=== PATIENT | male | born 1945 | race Caucasian/White ===

== ENCOUNTER → 2023-09-18 19:05 | Outpatient (REF) | payer MEDICARE, BC, SELFPAY | LOC: CLAB 19:05 | PROVIDERS: ATTENDING PHYSICIAN Specialist | DX: R35.0 Frequency of micturition (principal) | CPT/HCPCS: 87086 ==

== ENCOUNTER → 2023-11-02 08:50 | Day surgery (SDC) | payer MEDICARE, BC, SELFPAY ==
[2023-11-02 10:17] LABS: APTT 33.3 Sec (23.4-35.0); PT 14.3 Sec (11.4-14.6)
[2023-11-02 10:22] LABS: Hematocrit 38.1 % (39.0-52.0); Hemoglobin 12.8 g/dL (13.0-18.0); Mean Corp Hgb Conc. 33.6 g/dL (33.0-37.0); Mean Corpuscular Hgb 28.9 pg (27.0-31.0); Mean Platelet Volume 12.3 fL (7.4-10.4); Platelet Count 98 10^3/uL (130-400); Red Blood Cell Count 4.43 10^6/uL (4.70-6.10); Red Cell Dist. Width 14.6 % (11.5-14.5); White Blood Cell Count 3.4 10^3/uL (4.8-10.8)
[2023-11-02 11:26] LABS: Blood Urea Nitrogen 17 mg/dl (9-20); Calcium 9.6 mg/dl (8.4-10.2); Carbon Dioxide 28 mmol/L (22-30); Chloride 103 mmol/L (98-107); Glucose 101 mg/dl (70-99); Potassium 4.2 mmol/L (3.5-5.1); Sodium 141 mmol/L (135-145); eGFR > 60.00
== END ==
LOC: SDSPAT 08:50
PROVIDERS: ATTENDING PHYSICIAN Surgery; FAMILY PHYSICIAN Internal Medicine; OTHER PHYSICIAN Internal Medicine Cardiovascular Disease; REFERRING PHYSICIAN Specialist
DX: Z01.812 Encounter for preprocedural laboratory examination (principal)
CPT/HCPCS: 85027; 36415; 80048; 85610; 85730

== ENCOUNTER 2023-11-15 06:09 | Day surgery (SDC) | payer MEDICARE, BC, SELFPAY ==
[2023-11-02 09:08] VITALS: BMI 23.9
[2023-11-15] VITALS (16 sets, daily range): BP systolic 128–181; BP diastolic 66–93; BMI 23.9
[2023-11-15] MEDS: NORMOSOL-R 1000 IV ×2 (06:37→10:31)
[2023-11-15] MEDS: TYLENOL 1000 MG PO (06:37)
[2023-11-15] MEDS: CYSVIEW KIT 100 MG INTRAVES (06:50)
--- NOTE | 2023-11-15 10:01 | W.SUR.PREOP ---
Pre-Operative Surgical Note
-
I have examined this patient prior to the performance of the scheduled procedure.
The patient's condition is unchanged from the time of the current History and
Physical and the patient is able to undergo the scheduled procedure.
--- NOTE | 2023-11-15 10:01 | W.IMMPOSTOP ---
Surgical Immed Post Op Note
-
Primary Surgeon: Dudley Acosta MD
Assisting Surgeon: None
Core Cleaner: MIKKI Quinn
Pre-op Diagnosis: Right inguinal hernia
Post-op Diagnosis: Same
Procedure Performed:
Open right inguinal hernia repair with mesh
Anesthesia Type: General
Specimen / Cultures:
1. Right cord lipoma
2. Right inguinal nerve
Estimated Blood Loss: 3 cc
Complications: [None]
Operative Findings: Small indirect inguinal hernia with a small cord lipoma. No direct or femoral components. Floor reinforced with a 3 x 6 inch Bard soft mesh cut to size.
POST OP PLAN:
Patient being admitted for postop care after TURP.
General surgery will follow peripherally, discharge instructions placed.
--- NOTE | 2023-11-15 11:18 | OR.RPT ---
Operative Report
Operative Report
Patient Name: Trevor Saini
: 1945
Date of Operation: [] 11/15/2023
Preoperative Diagnosis: Reducible Inguinal hernia, right
Postoperative Diagnosis: Same
Procedure(s):
Open right inguinal Hernia Repair with mesh
Surgeon(s):
Dr. Acosta
Farm Machinery Engine Mechanic(s):
MIKKI Quinn
Anesthesia: General
Estimated Blood Loss: [3] cc
Urine Output: None
Drains/Lines/Implants: 3 x 6 inch Bard soft mesh cut to size
Specimens:
1. Right inguinal nerve (ilioinguinal)
2. Right cord lipoma
Indication for surgery: The patient has a history of groin pain and some asymmetry noted on exam and was found to have a [Left] Inguinal Hernia. Following review of therapeutic options they has elected to undergo an open repair
Findings at the time of surgery:
Patient had [an Indirect] Inguinal Hernia. The inguinal floor was reinforced with polypropylene mesh
Details of the operation:
I entered the operating room as Dr. Vuong was finishing up his part of the procedure. The drapes were removed and the patient was moved from the dorsal lithotomy to the supine position. The patient was clipped, prepped and draped in the usual
fashion. A team timeout was performed confirming administration of DVT prophylaxis, IV antibiotics and SCDs. The ASIS and pubic tubercle were marked and an incision was chosen along the course of a skin line. The skin was anesthestized with
Lidocaine. An incision was made through the skin line and dissection carried down through subcutaneous tissue and Rach's fascia. The superficial epigastric vein was identified and ligated. A Small Epi wound retractor was used to provide
exposure. The external oblique fibers were then divided in the direction of travel. The ilioinguinal nerve was identified and ligated. Dissection was carried down to the floor, which revealed the following:
At the site of the indirect (internal) ring, there was a moderate size protrusion of preperitoneal fat, the hernia sac was identified, dissected and reduced off the cord structures.
A cord lipoma was also identified and resected.
The direct space, floor of the canal revealed no weakness.
The floor of the canal was then reconstructed by placing a 6x3 in BARD soft polypropylene mesh trimmed to size and secured it in place with interrupted 0-PDS sutures medially at the pubic tubercle, inferiorly along the inguinal ligament,
laterally/superiorly in the conjoint tendon. A slit was made in the mesh just wide enough to accommodate the cord this was also reapproximated with the PDS suture. Care was taken not to injure or entrap any nerves. The external oblique fibers were
then closed using a running 2-0 Vicryl suture. Rach's fascia was then closed with interrupted 3-0 Vicryl suture. The skin was closed in layers with interrupted 3-0 vicryl deep dermals followed by a running subcuticular 4-0 Monocryl followed by
dermabond. The patient returned to the Recovery Room in stable condition. Sponge and instrument counts were correct. No specimens sent to Pathology.
I was the attending physician and performed the procedure with assistance from the PA above. The assistance of Meggan Valdez was required due to the complexity of the procedure. During the procedure Meggan assisted with retraction, resection, and
closure of the wound. I was present for all portions of the case, excluding skin closure.
Dudley Acosta MD
[2023-11-15] MEDS: DETROL LA 4 MG PO (12:10)
--- NOTE | 2023-11-15 13:13 | PTCARENOTE ---
Pt arrived to [address] [place] [address] PACU s/p TURP and R inguinal hernia repair w/ mesh. Pt R groin incision VIOLETTE, C/D/I. [address], CBI infusing, draining blood tinged urine. Pt states no pain at this time. Oriented to call thornton and room, bed
locked in lowest position. Call thornton within reach.
[2023-11-15] MEDS: COLACE PO (13:31)
[2023-11-15] MEDS: ASPIR LOW (ENTERIC COATED) 81 MG PO (14:05)
[2023-11-15] MEDS: LIPITOR 20 MG PO (17:00)
[2023-11-15] MEDS: COLACE 100 MG PO (17:00)
[2023-11-16 03:09] VITALS: BP 147/88
[2023-11-16 07:10] VITALS: BP 161/76
[2023-11-16] MEDS: COLACE 100 MG PO ×2 (08:54→12:24)
[2023-11-16] MEDS: ASPIR LOW (ENTERIC COATED) 81 MG PO (08:54)
[2023-11-16] MEDS: METAMUCIL, KONSYL 1 PACKET PO (09:03)
--- NOTE | 2023-11-16 09:40 | W.PN.GS2 ---
Today's Communication / Plan
-
dispo planning
Assessment / Plan
-
78 yo male POD #1 elective TURP with concurrent right inguinal hernia repair
AFVSS
tolerating diet
Minimal post op discomfort
--continue regular diet
--ice packs to groin as needed edema/discomfort
--oob/ambulate
--analgesics prn
--final dispo as per urology
Subjective Data
-
Date of Service: November 16, 2023
Patient seen and examined at bedside. Denies n/v. Tolerating diet. OOB/ambulating. Denies pain.
Objective Data
-
Intake and Output
11/15/23 11/16/23 11/17/23
06:59 06:59 06:59
Intake Total 2200 / 2200
Output Total 3300 / 3300
Balance -1100 / -1100
Intake:
Oral fluids 2100 / 2100
IV fluids (Total) 100 / 100
Normosol 100 / 100
Output:
True Urine Output from CBI 3300 / 3300
Vital Signs
Temp Pulse Resp BP Pulse Ox
97.8 F 66 18 161/76 99
11/16/23 07:10 11/16/23 07:10 11/16/23 07:10 11/16/23 07:10 11/16/23 08:45
Physical Exam
-
NAD
ABD soft, nd, nt
Right groin incision with intact glue, very minimal ecchymosis/edema and no erythema
[2023-11-16 11:05] VITALS: BP 138/68
--- NOTE | 2023-11-16 12:38 | CM ---
Reviewed the chart notes and spoke with the patient and his spouse at the bedside. The patient resides with his spouse in a bi-level home with one step to enter via garage. The patient reports no DME/VN/SNF in the past. The patient confirmed his
pharmacy of choice is the [facility]. CM continues to be available to patient/family and is monitoring medical plan for needs at discharge.
Plan: Discharge to home today with no needs. The patient's spouse will provide transportation.
[2023-11-16 15:05] VITALS: BP 181/95
--- NOTE | 2023-11-16 15:52 | W.PN.UPDATE ---
Update Note
Progress Note Update
Yong removed this AM
has voided several times
--> discharge
[2023-11-16 16:17] VITALS: BP 144/82
== END 2023-11-16 16:19 | disposition home or self-care (01) ==
LOC: SDS 06:09
PROVIDERS: ATTENDING PHYSICIAN Specialist
DX: N40.1 Benign prostatic hyperplasia with lower urinary tract symptoms (principal); N41.1 Chronic prostatitis; R35.0 Frequency of micturition; N39.41 Urge incontinence; R33.9 Retention of urine, unspecified; K40.90 Unilateral inguinal hernia, without obstruction or gangrene, not specified as recurrent
CPT/HCPCS: 52601; 49505; 88304; 88305; A9589

== ENCOUNTER → 2024-04-15 13:03 | Outpatient (REF) | payer MEDICARE, BC, SELFPAY | LOC: MRI 3T 13:03 | PROVIDERS: ATTENDING PHYSICIAN Internal Medicine | DX: R41.3 Other amnesia (principal) | CPT/HCPCS: 36415; 70553; 80053; 80061; 82607; 82746; 84443; 85025; A9575 ==

== ENCOUNTER → 2024-09-20 10:58 | Outpatient (REF) | payer OTHER, SELFPAY | LOC: RAD 10:58 | PROVIDERS: ATTENDING PHYSICIAN Family Medicine; FAMILY PHYSICIAN Internal Medicine | DX: R05.1 Acute cough (principal) | CPT/HCPCS: 71046 ==

== ENCOUNTER → 2024-12-03 08:37 | Outpatient (REF) | payer OTHER, SELFPAY ==
[2024-12-03 09:59] LABS: Hematocrit 35.6 % (39.0-52.0); Hemoglobin 11.6 g/dL (13.0-18.0); Mean Corp Hgb Conc. 32.6 g/dL (33.0-37.0); Mean Corpuscular Volume 85.8 fL (80.0-94.0); Red Cell Dist. Width 15.9 % (11.5-14.5)
[2024-12-03 10:16] LABS: ALT (SGPT) 19 U/L (0-50); AST (SGOT) 21 U/L (17-59); Albumin 4.1 g/dl (3.5-5.0); Alkaline Phosphatase 239 U/L (38-126); Blood Urea Nitrogen 12 mg/dl (9-20); Calcium 9.0 mg/dl (8.4-10.2); Carbon Dioxide 29 mmol/L (22-30); Chloride 102 mmol/L (98-107); Glucose 90 mg/dl (70-99); HDL Cholesterol 30 mg/dl; LDL Cholesterol, Calculated 61 mg/dl; Potassium 4.7 mmol/L (3.5-5.1); Sodium 139 mmol/L (135-145); Total Protein 8.0 g/dl (6.3-8.2); Very Low Density Lipoprotein 11 mg/dl (0-30); eGFR > 60.00
[2024-12-03 10:34] LABS: Platelet Count 99 10^3/uL (130-400)
[2024-12-03 10:36] LABS: Absolute Neutrophils -Man Diff 8.8 10^3/uL (1.4-6.5); Platelets Checked Yes
[2024-12-03 10:37] LABS: Normal RBC Morphology Yes; Total Cells Counted 100
[2024-12-03 10:46] LABS: Vitamin B12 > 1000 pg/ml (239-931)
== END ==
LOC: REG 08:37
PROVIDERS: ATTENDING PHYSICIAN Internal Medicine
DX: I10 Essential (primary) hypertension (principal); E78.5 Hyperlipidemia, unspecified; R53.83 Other fatigue
CPT/HCPCS: 36415; 80053; 80061; 82607; 84443; 85025

== ENCOUNTER 2025-01-07 08:32 | Emergency (ER) | payer OTHER, SELFPAY ==
[2025-01-07] VITALS (8 sets, daily range): BP systolic 123–148; BP diastolic 67–85; BMI 23.3
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
[2025-01-07 11:05] LABS: ALT (SGPT) 19 U/L (0-50); AST (SGOT) 16 U/L (17-59); Albumin 3.7 g/dl (3.5-5.0); Alkaline Phosphatase 298 U/L (38-126); Blood Urea Nitrogen 12 mg/dl (9-20); Calcium 8.8 mg/dl (8.4-10.2); Carbon Dioxide 26 mmol/L (22-30); Chloride 106 mmol/L (98-107); Estimated Creatinine Clearance 95 ml/min; Glucose 98 mg/dl (70-99); Potassium 4.0 mmol/L (3.5-5.1); Sodium 139 mmol/L (135-145); Total Protein 7.3 g/dl (6.3-8.2); eGFR > 60.00
[2025-01-07 11:15] LABS: INR 1.23; PT 15.8 Sec (11.4-14.6)
[2025-01-07 11:16] LABS: APTT 36.6 Sec (23.4-35.0)
[2025-01-07 11:33] LABS: Hematocrit 33.7 % (39.0-52.0); Hemoglobin 10.6 g/dL (13.0-18.0); Mean Corp Hgb Conc. 31.5 g/dL (33.0-37.0); Mean Corpuscular Volume 88.9 fL (80.0-94.0); Platelet Count 125 10^3/uL (130-400); Red Cell Dist. Width 19.3 % (11.5-14.5)
[2025-01-07 12:33] LABS: Absolute Neutrophils -Man Diff 5.2 10^3/uL (1.4-6.5)
[2025-01-07 12:34] LABS: Acanthocytes Slight; Anisocytosis 1+; Hypochromasia 1+; Normal RBC Morphology No; Ovalocytes 1+; Platelets Checked Yes; Total Cells Counted 100
--- NOTE | 2025-01-07 13:20 | EDRN ---
Report to Norma at [facility]. [phone]
== END 2025-01-07 14:59 | disposition short-term general hospital (02) ==
LOC: EMR 08:32
PROVIDERS: Physician Assistant; EMERGENCY PHYSICIAN Emergency Medicine; FAMILY PHYSICIAN Internal Medicine
DX: S06.5XAA Traumatic subdural hemorrhage with loss of consciousness status unknown, initial encounter (principal); W19.XXXA Unspecified fall, initial encounter; I48.91 Unspecified atrial fibrillation; I10 Essential (primary) hypertension; E78.00 Pure hypercholesterolemia, unspecified; D46.9 Myelodysplastic syndrome, unspecified
CPT/HCPCS: 99291; 70450; 80053; 85025; 85610; 85730; 93005

== ENCOUNTER → 2025-02-26 08:58 | Outpatient (REF) | payer OTHER, SELFPAY | LOC: RCS 08:58 | PROVIDERS: ATTENDING PHYSICIAN Internal Medicine Cardiovascular Disease; FAMILY PHYSICIAN Internal Medicine | DX: I48.91 Unspecified atrial fibrillation (principal) | CPT/HCPCS: 93306 ==